=== PATIENT | male | born 1965 | race Two or more races ===

== ENCOUNTER 2025-07-06 17:32 | Inpatient (IN) | payer BC, SELFPAY ==
--- NOTE | 2025-07-06 17:41 | EDNOTE_ITS ---
Neuro Symptoms Deficit-RME/HPI General Chief Complaint: Altered Mental Status Stated Complaint: STROKE Time Seen by Provider: 07/06/25 17:41 Arrival date/time: 07/06/25 17:32 Limitations: no limitations RME / HPI RME / HPI Narrative: 60 year old male with history of hypertension presents to the ED BIBA from home for evaluation of right upper extremity numbness and weakness today. Patient reports waking up at 03:00 AM today to get ready for work when he noticed his entire right arm felt numb. Patient says he thought he had slept wrong and did not pay much attention to it. States he went to work and while working noticed some weakness to the right upper extremity. Evidently after completing his work day noticed the symptoms did not improve, prompting calling 911. Per medics, fire department reported obvious right facial droop with slurred speech. Though on their arrival, the facial droop had resolved. Medics adds as the patient was able to walk to they [facility] and noted to be mildly dragging the right leg. In the ED, patient also complains of a mild headache. Denies history of similar presentation. Related Data Previous Rx's ?Medication ?Instructions ?Recorded Amlodipine Besylate 1 tab PO QAM #30 tabs Allergies Allergy/AdvReac Type Severity Reaction Status Date / Time No Known Allergies Allergy Verified 05/26/18 01:39 Review of Systems Review of Systems Systems Reviewed: All systems reviewed, normal except as documented Past Medical History Past Medical History CARDIAC: Positive Cardiac Disorders and Hypertension; Negative Congestive Heart Failure RESPIRATORY: Negative Chronic Obstructive Pulmonary Disease (COPD) GENITOURINARY: Negative Renal Disease ENDOCRINE: Negative Diabetes Mellitus Type 1 or Diabetes Mellitus Type 2 Social History SMOKING STATUS: Current some day smoker ED Exam General Limitations: Present no limitations General appearance: Present alert and in no apparent distress Head Head exam: Present atraumatic, normocephalic and normal inspection Eye Eye exam: Present normal appearance, PERRL and EOMI ENT ENT exam: Present normal exam, normal oropharynx and mucous membranes moist Neck Neck exam: Present normal inspection, full ROM and trachea midline Chest Chest inspection: Present normal inspection and symmetric chest wall rise Respiratory Respiratory exam: Present normal lung sounds bilaterally Cardiovascular Cardiovascular exam: Present regular rate, normal rhythm and normal heart sounds Abdominal Exam Abdominal exam: Present soft and normal bowel sounds Extremities Exam Extremities exam: Present full ROM Back Exam Back exam: Present normal inspection and full ROM Neurological Exam Neurological exam: Present alert, oriented X3, CN II-XII intact and other (No facial droop noted, mild slurred speech, strength to the upper and lower extremities is normal, decreased sensation to the right upper extremity) Psychiatric Psychiatric exam: Present normal affect and normal mood Skin Skin exam: Present warm, dry, intact and normal color Course Quality Measures Suspected type of Stroke: Non Acute Tenecteplase given: Reason(s) TPA not given: Outside the time window not given stroke Orders Category Date Time Status Bedside Blood Glucose NOW Care 07/06/25 17:42 Active Mill Tender Warm Up NOW Care 07/06/25 17:42 Active Continuous Pulse Oximetry NOW Care 07/06/25 17:42 Completed Insert IV NOW Care 07/06/25 17:42 Active NIH Stroke Scale now Care 07/06/25 17:42 Active NPO NOW Care 07/06/25 17:42 Active Neuro Check Q15MIN Care 07/06/25 17:42 Active Nurse Swallow Screen x1 Care 07/06/25 17:42 Active Consult to Neurology / Tele-Neurology Routine Cons 07/06/25 17:[address] angio stroke protocol Stat Exams 07/06/25 17:[address] stroke protocol Stat Exams 07/06/25 17:42 Completed Alcohol, Blood Medical Stat Lab 07/06/25 18:37 Received B-Type Natriuretic Peptide Stat Lab 07/06/25 18:37 Completed CBC Stat Lab 07/06/25 18:37 Completed Comprehensive Metabolic Panel Stat Lab 07/06/25 18:37 Received Drug Screen,Urine Stat Lab 07/06/25 17:42 Ordered Magnesium Stat Lab 07/06/25 18:37 Received Partial Thromboplastin Time Stat Lab 07/06/25 18:37 Completed Prothrombin Time with INR Stat Lab 07/06/25 18:37 Completed Troponin I Stat Lab 07/06/25 18:37 Received Urinalysis Stat Lab 07/06/25 17:42 Ordered Urine Culture Stat Lab 07/06/25 17:42 Ordered Sodium Chloride 0.9% 1000 ml [Ns] 1,000 ml Med 07/06/25 17:45 Active IV 100 mls/hr Oxygen Delivery NOW RT 07/06/25 17:42 Active Vital Signs Vital signs: Vital Signs Pulse Rate 76 07/06/25 17:42 Neuro Symptoms / Deficit MDM Narrative MDM Narrative:: I, Marika Lara, am scribing for and in the presence of Dr. Jarquin. 1736: Patient evaluated in ED ambulance bay then sent to CT. 1901: I spoke with night hospitalist team for admission. Patient data External records reviewed:: [facility] previous records and EMS form Clinical information provided by:: patient and EMS Social determinants that could affect healthcare access:: none Patient has the following chronic illnesses:: HTN How is presenting disease/condition affected by chronic disease/condition?: exacerbated by Evaluation data The following diagnostics were reviewed and interpreted by me:: lab results and radiology exam(s) Lab and/or radiology exams considered but not ordered:: None Interpretation Summary: Ordering Physician: Stephen Jarquin MD Date of Service: 07/06/25 Procedure(s): CT stroke protocol Accession Number(s): [id number] cc: Stephen Jarquin MD; Tyrell Lopes MD; NO PRIMARY/FAMILY,PHYSICIAN~ Examination: CT brain head without contrast. 2-D sagittal coronal reconstructions Date and time of exam: July 06, 2025, 1750 hours INDICATIONS: Stroke alert, onset right-sided body weakness today CTDI: vol (mGy): 52.2 DLP: (mGycm): 1073 Technique: Multiple CT axial sections of the brain have been obtained, 5 mm slice thickness. Contrast has not been administered. 2-D sagittal, coronal reconstructions have been obtained Low dose protocols were performed. One or more of the following dose reduction techniques were used; automated exposure control, adjustment of the mA and/or KV according to patient size, use of iterative reconstruction technique. Findings: Mildly asymmetric left ventricular enlargement Intra-axial or extra-axial hemorrhage density is not seen. No mass effect or midline shift Basal cisterns are not remarkable. Fourth ventricle is midline. Cranial vault intact. Impression: Negative for acute hemorrhage, mass effect or midline shift Dictated By: Tyrell Lopes MD Signed By: <Electronically signed by Tyrell Lopes MD in OV> 07/06/251752 ======== Ordering Physician: Stephen Jarquin MD Date of Service: 07/06/25 Procedure(s): CT angio stroke protocol Accession Number(s): [id number] cc: Stephen Jarquin MD; Tyrell Lopes MD; NO PRIMARY/FAMILY,PHYSICIAN~ Examination: CTA carotids with intravenous contrast CTA brain, head with intravenous contrast. 2-D sagittal, coronal reconstructions. 3-D reconstructions. Exam date and time: July 06, 2025, 1754 hours INDICATIONS: Stroke alert, onset right-sided weakness today focal neurologic deficit CTDI: vol (mGy) 40.9 DLP: (mGycm) 490 Technique: Multiple CTA axial brain, head carotid images post intravenous contrast injection 75 cc, [id number]. 2-D sagittal, coronal reconstructions. 3-D reconstructions, 3-D post processing including vascular maximum intensity projection images. Low dose protocols were performed. One or more of the following dose reduction techniques were used; automated exposure control, adjustment of the mA and/or KV according to patient size, use of iterative reconstruction technique. Findings: No common carotid carotid bifurcation no significant internal carotid artery stenoses Dominant vertebral artery with no critical vertebral artery stenoses in the neck Intracranial vertebral arteries basilar artery and posterior cerebral branches fill with no large vessel occlusions Petrous juxtasellar portions internal carotid arteries fill and are intact M1 segments middle cerebral arteries fill Trifurcation artery filling bilaterally is mildly reduced which is a function of technique Anterior cerebral arteries demonstrate no large vessel occlusions IMPRESSION: No significant neck arterial stenoses No cerebral large vessel arterial occlusions or thrombus Dictated By: Tyrell Lopes MD Signed By: <Electronically signed by Tyrell Lopes MD in OV> 07/06/25 1560 Medications / Prescriptions Medications or Prescriptions considered but not ordered:: None Medication administrations:: Medication Administration History Sodium Chloride (Ns) 1,000 mls @ 100 mls/hr IV .Q10H FRANCY Stop: 08/05/25 17:44 Last Admin: 07/06/25 19:39 Dose: 100 mls/hr Documented By: AC See above Consultations Consultation(s) initiated? (list below): Yes Consultation #1 (Physician, Specialty, Details): I briefly discussed patients pmhx and HPI with teleneurologist Dr. Driss Alva. Consultation #2 (Physician, Specialty, Details): I spoke with teleneurologist Nia Alva. States she believes the patient may be having an acute lacunar stroke. States there is not LVO. Advised admission for stroke work up. Time: 18:44 Diagnosis Neuro Differential Diagnosis: subarachnoid hemorrhage, cerebrovascular accident and transient cerebral ischemia Most likely diagnosis given after review of the tests above:: Acute CVA Accelerated hypertension Ataxic gait Admission Indicated Admission indicated?: indicated Admission Request Was there a request for admission?: Yes Admission Attestation Admission request attestation: Discussed case with [] from Hospitalist service regarding admission. Discussed patients ED course, exam findings, labs, and radiology results. The Hospitalist [agrees,declines] to accept the patient for admission. Disposition Plan Disposition Plan: Admit Discharge Plan Plan Patient Disposition: Admit Acute Care w/in Hospital Prescriptions/Referrals Prescriptions/Med Rec: No Action Amlodipine Besylate 5 MG tablet 1 tab PO QAM Qty: 30 0RF Referrals: No Primary/Family,Physician [Primary Care Provider] - In 1 week Problem List Clinical Impression: Acute cerebrovascular accident (CVA), Accelerated hypertension, Ataxic gait Patient/Caregiver Discharge Instructions Print Language: Belarusian Stand Alone Forms: Emily Award Info., Patient Portal Info Letter
[2025-07-06 17:42] VITALS: PULSE 76
[2025-07-06 17:56] VITALS: BMI 31.6
[2025-07-06 18:08] VITALS: BP 180/120; PULSE 78; RESP 18; TEMP 36.6; O2SAT 96
--- NOTE | 2025-07-06 18:49 | PD.TNEURO ---
Tele Neuro Consultation Consultation Date 07/06/25 Most Recent Vital Signs Last Vital Signs Temp 97.9 F 07/06/25 18:08 Pulse 78 07/06/25 18:08 Resp 18 07/06/25 18:08 BP 180/120 H 07/06/25 18:08 Pulse Ox 96 07/06/25 18:08 O2 Del Method Room Air 07/06/25 18:08 Consultation Narrative [facility] Tele[facility]urology Consult Services Patient Name:???SYEDA MITCHELL Date of :???1965 Identification Number:??? Date of Service:???07/06/2025 17:34:05 Diagnosis:?I63.89 - Cerebrovascular accident (CVA) due to other mechanism ([facility]) Impression: ?60 yo male with history of HTN not on medications at home presenting to the ED with Right sided weakness/numbness/ataxia concerning for acute lacunar stroke. He is outside the time window for thrombolytics. CT Head negative for acute findings. CTA personally reviewed and negative for obvious LVO, will follow-up formal read. Plan to admit for MRI Brain wo and stroke workup. Start ASA 81 mg and Plavix 75 mg daily. Permissive HTN. Our recommendations are outlined below. Recommendations: ? Stroke/Telemetry Floor ? Neuro Checks (Q4) ? Bedside Swallow Eval ? DVT Prophylaxis ? IV Fluids, Normal Saline ? Head of Bed 30 Degrees ? Euglycemia and Avoid Hyperthermia (PRN Acetaminophen) ? Initiate dual antiplatelet therapy with Aspirin 81 mg daily and Clopidogrel 75 mg daily. ? Antihypertensives PRN if Blood pressure is greater than 220/120 or there is a concern for End organ damage/contraindications for permissive HTN. If blood pressure is greater than 220/120 give labetalol PO or IV or Vasotec IV with a goal of 15% reduction in BP during the first 24 hours. Sign Out: ? Discussed with Emergency Department Provider Advanced Imaging:Advanced imaging has been ordered. Results pending. Metrics: Last Known Well: 07/06/2025 01:00:00 Dispatch Time: 07/06/2025 17:34:05 Arrival Time: 07/06/2025 17:41:00 Initial Response Time: 07/06/2025 17:36:02Symptoms: Right sided weakness/numbness, incoordination. Initial patient interaction: 07/06/2025 17:40:15 NIHSS Assessment Completed: 07/06/2025 17:43:59Patient is not a candidate for Thrombolytic. Thrombolytic Medical Decision: 07/06/2025 17:44:00Patient was not deemed candidate for Thrombolytic because of following reasons: LKW outside 4.[address] Head: CT head unremarkable for acute infarction or hemorrhage per Radiology: No acute hemorrhage, mass effect or midline shift Primary Provider Notified of Diagnostic Impression and Management Plan on: 07/06/2025 18:43:47 History of Present Illness:Patient is a 60 year old Male. Patient was brought by EMS for symptoms of Right sided weakness/numbness, incoordination. Patient reports that he was last completely normal when he went to bed last night at ~0100. Woke up at ~0300 with RUE numbness after sleeping on his arm, but has been persistent throughout the day. Also having some slurred speech and difficulty walking with Right sided weakness. ? Past Medical History: ?Hypertension Medications: No Anticoagulant use? No Antiplatelet use Reviewed EMR for current medications Allergies:? Reviewed Social History: Smoking: No Family History: There is no family history of premature cerebrovascular disease pertinent to this consultation ROS : 14 Points Review of Systems was performed and was negative except mentioned in HPI. Past Surgical History: There Is No Surgical History Contributory To Today?s Visit ? Examination: BP(200/108),?Pulse(87),?Blood Glucose(96) 1A: Level of Consciousness - Alert; keenly responsive?+ 0 1B: Ask Month and Age - Both Questions Right?+ 0 1C: Blink Eyes & Squeeze Hands - Performs Both Tasks?+ 0 2: Test Horizontal Extraocular Movements - Normal?+ 0 3: Test Visual De La Garza - No Visual Loss?+ 0 4: Test Facial Palsy (Use Grimace if Obtunded) - Minor paralysis (flat nasolabial fold, smile asymmetry)?+ 1 5A: Test Left Arm Motor Drift - No Drift for 10 Seconds?+ 0 5B: Test Right Arm Motor Drift - Drift, but doesn't hit bed?+ 1 6A: Test Left Leg Motor Drift - No Drift for 5 Seconds?+ 0 6B: Test Right Leg Motor Drift - Drift, but doesn't hit bed?+ 1 7: Test Limb Ataxia (FNF/Heel-Coleman) - Ataxia in 2 Limbs?+ 2 8: Test Sensation - Normal; No sensory loss?+ 0 9: Test Language/Aphasia - Normal; No aphasia?+ 0 10: Test Dysarthria - Mild-Moderate Dysarthria: Slurring but can be understood?+ 1 11: Test Extinction/Inattention - No abnormality?+ 0 NIHSS Score:?6 Pre-Morbid Modified [place] Scale: 0 Points = No symptoms at all Spoke with :?Dr. Jarquin This consult was conducted in real time using interactive audio and video technology. Patient was informed of the technology being used for this visit and agreed to proceed. Patient located in hospital and provider located at home/office setting. Patient is being evaluated for possible acute neurologic impairment and high probability of imminent or life-threatening deterioration. I spent total of 30 minutes providing care to this patient, including time for face to face visit via telemedicine, review of medical records, imaging studies and discussion of findings with providers, the patient and/or family. Dr Driss Alva [facility] For Inpatient follow-up with [facility] physician please call [facility] at . As we are not an outpatient service for any post hospital discharge needs please contact the hospital for assistance. If you have any questions for the [facility] physicians or need to reconsult for clinical or diagnostic changes please contact us via [facility] at . Non-radiologist review of imaging performed to assist with emergent clinical decision-making. Remote physician workstations do not possess the same resolution, calibration, or diagnostic capabilities as hospital-based radiology reading stations, and formal radiologist read is necessary. Signature :Bipin Alva
[2025-07-06 19:12] LABS: Basophils # (Auto) 0.1 Thou/mm3 (0.0-0.2); Basophils % (Auto) 1 % (0-2.5); Eosinophils # (Auto) 0.1 Thou/mm3 (0.0-0.5); Eosinophils % (Auto) 2 % (0-10); Hematocrit 41.0 % (41.0-53.0); Hemoglobin 13.8 g/dL (13.5-16.0); Immature Granulocytes Auto 0.01 Thou/mm3 (0.00-0.00); Lymphocytes # (Auto) 1.5 Thou/mm3 (1.0-4.8); Lymphocytes % (Auto) 24 % (10-50); Mean Corpuscular HGB Conc 33.7 g/dl (31.0-37.0); Mean Corpuscular Hemoglobin 28.6 pg (25.0-35.0); Mean Corpuscular Volume 85 fL (80-100); Monocytes # (Auto) 0.8 Thou/mm3 (0.0-0.8); Monocytes % (Auto) 12 % (0-12); Neutrophils # (Auto) 3.9 Thou/mm3 (1.8-7.7); Neutrophils % (Auto) 61 % (37-80); Nucleated Red Blood Cell # 0.00 Thou/mm3 (0.00-0.00); Nucleated Red Blood Cell % 0 /100 WBC (0); Platelet Count 233 Thou/mm3 (140-440); RDW Standard Deviation 42.6 fL (35.1-43.9); Red Blood Count 4.82 Miln/mm3 (4.50-5.90); White Blood Count 6.4 Thou/mm3 (3.8-10.6)
[2025-07-06 19:23] VITALS: BP 188/123; PULSE 76; RESP 16; O2SAT 94
[2025-07-06 19:28] LABS: INR 1.0 (0.9-1.3); Partial Thromboplastin Time 26.4 Seconds (22.0-36.0); Prothrombin Time 10.8 Seconds (9.0-12.2)
[2025-07-06 19:31] LABS: B-Type Natriuretic Peptide 41 pg/mL (0-100)
[2025-07-06] MEDS: SODIUM CHLORIDE 0.9% 1000 ML 1,000 ML 100 ML IV (19:39)
[2025-07-06 19:53] LABS: Alanine Aminotransferase 21 U/L (10-49); Albumin, Serum 4.4 gm/dL (3.5-5.0); Albumin/Globulin Ratio 2.2 (1.2-2.2); Alcohol, Blood Medical < 3.0 mg/dL (0-10.0); Alkaline Phosphatase 55 U/L (46-116); Anion Gap 11 (7-16); Aspartate Amino Transferase 26 U/L (0-34); BUN/Creatinine Ratio 13 Ratio (12-20); Bilirubin,Total 0.5 mg/dL (0.3-1.2); Blood Urea Nitrogen 15 mg/dL (9-23); Calcium 8.8 mg/dL (8.3-10.6); Calcium (Corrected) 8.8 mg/dL (8.5-10.1); Carbon Dioxide 27.0 mMol/L (20.0-31.0); Chloride 104 mMol/L (98-107); Creatinine (Component) 1.2 mg/dL (0.6-1.3); Estimated Creatinine Clearance 67.0 mL/min (>60); Globulin 2.0 gm/dL (2.3-3.5); Glucose 94 mg/dL (74-106); Magnesium 2.1 mg/dL (1.6-2.6); Osmolality,Calculated 283 (275-295); Potassium 3.9 mMol/L (3.4-5.1); Sodium 142 mMol/L (136-145); Total Protein 6.4 gm/dL (5.7-8.2); Troponin I 0.031 ng/mL (0.0-0.045); eGFR > 60 See Note
--- NOTE | 2025-07-06 20:04 | XR_ITS ---
Examination: Ultrasound-guided paracentesis Abdominal sonogram limited Date and time of exam: Informed consent provided. A timeout was completed verifying correct patient, procedure, site, positioning, and special adequate movement if applicable. Technique: Multiple sonographic images of the abdomen have been obtained. Appropriate area for paracentesis was marked. Local anesthesia is obtained with 1% lidocaine. Yueh catheter is successfully introduced. Findings: Abdominal sonographic images demonstrate sufficient ascitic fluid for paracentesis. After placing the Yueh catheter, cc of fluid were successfully removed. During and after completion of the procedure the patient appear in satisfactory and stable condition with no complications observed. Estimated blood loss 0 cc Impression: Abdominal ascites Successful ultrasound-guided paracentesis as described above
--- NOTE | 2025-07-06 20:07 | ECHO_ITS ---
Transthoracic Echo Report Ht (in): 65 Wt (lb): 190 Exam Location: 262 Status: Emergency Nutritional Yeast Supervisor: Serena Grover Indications: Procedure Performed: BP: 159 / 105 HR: 91 MEASUREMENTS (Male / Female) Normal Values 2D ECHO LV Diastolic Diameter PLAX 5.3 cm 4.2 - 5.9 / 3.9 - 5.3 cm LV Systolic Diameter PLAX 4.6 cm IVS Diastolic Thickness 0.6 cm 0.6 - 1.0 / 0.6 - 0.9 cm LVPW Diastolic Thickness 1.2 cm 0.6 - 1.0 / 0.6 - 0.9 cm LV Relative Wall Thickness 0.3 LVOT Diameter 2.0 cm LV Ejection Fraction MOD BP 25.4 % >= 55 % LV Cardiac Index MOD BP 2434.9 cm?/min?m? LV Ejection Fraction MOD 4C 21.1 % LV Cardiac Index MOD 4C 2254.5 cm?/min?m? LV Ejection Fraction 4C AL 22.2 % LV Cardiac Index 4C AL 2473.5 cm?/min?m? LV Ejection Fraction MOD 2C 32.0 % LV Cardiac Index MOD 2C 2840.7 cm?/min?m? LV Ejection Fraction 2C AL 31.5 % LV Cardiac Index 2C AL 2846.0 cm?/min?m? LA Volume Index 51.1 cm?/m? 16 - 28 cm?/m? Ascending Aorta Diameter 3.0 cm M-MODE AV Cusp Separation MM 0.8 cm DOPPLER AV Peak Velocity 125.0 cm/s AV Peak Gradient 6.3 mmHg AV Mean Gradient 3.0 mmHg AV Velocity Time Integral 23.7 cm LVOT Peak Velocity 71.2 cm/s LVOT Peak Gradient 2.0 mmHg LVOT Velocity Time Integral 13.1 cm LVOT Cardiac Index 1855.7 cm?/min?m? AV Area Cont Eq vti 1.7 cm? AV Area Cont Eq pk 1.8 cm? MV Area PHT 7.3 cm? Mitral E Point Velocity 78.3 cm/s Mitral A Point Velocity 66.4 cm/s Mitral E to A Ratio 1.2 LV E' Lateral Velocity 4.3 cm/s Mitral E to LV E' Lateral Ratio 18.0 TR Peak Velocity 336.3 cm/s TR Peak Gradient 45.2 mmHg PV Peak Velocity 96.4 cm/s PV Peak Gradient 3.7 mmHg FINDINGS Left Ventricle Mild LVH. Global left ventricular systolic function is severely decreased. There is global left ventricular hypokinesis. Normal left ventricular diastolic filling pattern for age. The ejection fraction is visually estimated at 20-25 %. Right Ventricle The right ventricle is normal in size and systolic function. The estimated right ventricular systolic pressure, 52 mmHg with RAP 3. Severe HTN Left Atrium The left atrial cavity size is mildly increased. Right Atrium The right atrium is normal by two-dimensional imaging, color flow and Doppler imaging with no structural abnormalities, no thrombus formation present. Atrial Septum No [id number] shunt demonstrated by agitated saline injection. Aorta The aorta is normal by two-dimensional, color flow and Doppler interrogation. Mitral Valve The mitral valve is normal by two-dimensional, color flow and Doppler interrogation. [id number] mitral regurgitation. Mild thickening of the mitral valve leaflets. Aortic Valve Aortic valve sclerosis without stenosis Tricuspid Valve The tricuspid valve is normal by two-dimensional, color flow and Doppler interrogation.there is moderate tricuspid regurgitation. Pulmonic Valve The pulmonic valve is not well visualized. Mild pulmonic valve regurgitation. Vessels The pulmonary artery appears normal. The inferior vena cava pulmonary and hepatic veins appear normal. Pericardium The pericardium is normal by two-dimensional imaging. There is no significant pericardial effusion. CONCLUSIONS Indication: Stroke w/u Dilated cardiomyopathy severe global hypokinesis left ventricle ejection fraction 20 to 25%. No evidence of intracardiac thrombi detected. Negative bubble study no evidence of intracardiac shunts. Mitral valve thickening mild to moderate mitral regurgitation. Mild to moderate tricuspid regurgitation with mild pulmonary arterial hypertension. Possibly group 2 due to LV dysfunction. Normal right ventricular size and function. RVSP 52 mmHg Dilated left atrium Aortic valve sclerosis no stenosis. Mild pulmonic regurgitation. Negative bubble study Winifred Simmons (Electronically Signed) Final Date: 07 July 2025 15:02
[2025-07-06 20:37] LABS: Glucose Estimated Average 117 mg/dL (80-131); Hemoglobin A1C 5.7 % Hgb (4.8-6.0)
[2025-07-06] MEDS: HEPARIN SOD INJ 5000 UNIT/ML VIAL SC (21:06)
[2025-07-06 21:07] VITALS: BP 175/114; PULSE 73
[2025-07-06] MEDS: LABETALOL INJ 5 MG/ML VIAL 20 ML 10 MG IVP (21:07)
[2025-07-06 21:17] VITALS: BP 148/101; PULSE 69; RESP 18; O2SAT 95
--- NOTE | 2025-07-06 21:21 | PC.NURSE ---
REPORT GIVEN TO FLOOR NURSE WILL
--- NOTE | 2025-07-06 21:26 | PD.RESHP ---
Documentation for date of: 07/06/25 HPI History of Present Illness History of present illness: Mr. Oreilly is a 60 y/o male with PMH HTN who presented to the ED 07/06 with right sided weakness, numbness, ataxia, slurred speech, word finding difficulties, and right facial droop x 1 day. LKAW 01:00 07/06. NIHSS 6. Initial BP 180/120. Patient went to sleep at 01:00 on 07/06 and woke up at 03:00 with right upper and lower extremity weakness, numbness, and tingling sensation. Does not recall dropping objects with right hand. Patient went to work and noticed that the paresthesias and weakness persisted throughout the day. His coworkers also noticed patient's difficulty with walking. When symptoms did not improve throughout the day patient called EMS, and paramedics noticed right facial droop, slurred speech, and right foot drop. Patient denies previous similar episodes. Denies hx stroke, TIA, [place], CHF, arrhythmias, DVT, PE. He notes continued right sided tingling and weakness with some residual slurred speech. ED course: BP 180/120 --> 188/123, HR 60-70s. Stroke alert called. LKAW 1 AM 07/06, NIHSS 6. CT head negative for acute hemorrhage, mass effect, midline shift. Did show asymmetric left lateral ventricular enlargement. CTA negative for LVO or arterial stenoses. BG 94. Troponin negative. Given 1L NS in ED. PMHx: HTN Allergies: NKDA Home meds: none SgHx: none SHx: Denies smoking, EtOH, recreational drug use. Works in [employer]). FHx: none reported Review of Systems Review of Systems Narrative Review of Systems: 14 point ROS negative other than HPI Exam Vital Signs Temp Pulse Resp BP Pulse Ox O2 Del Method 97.9 F 69 18 148/101 H 95 Room Air 07/06/25 18:08 07/06/25 21:17 07/06/25 21:17 07/06/25 21:17 07/06/25 21:17 07/06/25 19:23 Narrative Exam General: No acute distress, well nourished Eye: PERRL, EOMI, normal conjunctiva, no scleral icterus HENT: Normocephalic, atraumatic, normal hearing, moist oral mucosa Neck: Supple, non-tender, no JVD, no lymphadenopathy Lungs: Clear to auscultation bilaterally, non-labored respirations, symmetric chest rise, no use of accessory muscles Heart: Normal S1 and S2, no S3 or S4 appreciated. Normal rate and regular rhythm, no murmurs, rubs gallops, or edema. Peripheral pulses intact bilaterally, capillary refill brisk distally Abdomen: Soft, non-tender, non-distended, normal bowel sounds. No guarding or rebound tenderness. Musculoskeletal: Normal range of motion and strength, no tenderness or swelling Skin: Skin is warm, dry, no rashes or lesions. Psychiatric: Cooperative, appropriate mood and affect Neurologic: Mental status: Orientation: Oriented to person, place, time, and situation Communication: Patient is cooperative and can follow simple instructions Language: Mildly slurred speech, some word finding difficulty Cranial nerves: CN II: Visual mullen intact CN III: Pupils equal, round, and reactive to light CN III, IV, : No gaze deviation, no nystagmus Horizontal pursuit: intact Vertical pursuit: intact Ptosis: none CN V: Facial sensation to light touch intact bilaterally at the forehead, cheeks, and jaw line CN VII: Right lower facial droop CN VIII: Able to hear and respond to conversation at normal volume, intact to finger rub CN IX, X: Palate elevation symmetric, uvula midline CN XI: Head turn and shoulder shrug strong, symmetric bilaterally CN XII: Normal tongue protrusion without deviation, no fasciculations Motor: Normal bulk and tone No atrophy No abnormal movements or fasciculations Muscle strength: Shoulder abduction: R 5/5 L 5/5 Elbow flexion: R 5/5 L 5/5 Elbow extension: R 5/5 L 5/5 Hip flexion: R 5/5 L 5/5 Hip extension: R 5/5 L 5/5 Knee flexion: R 5/5 L 5/5 Knee extension: R 5/5 L 5/5 Sensory: RUE: Light touch intact LUE: Light touch intact RLE: Light touch intact LLE: Light touch intact Cerebellum: RUE: No dysmetria (finger to nose), no dysdiadochokinesia (rapid alternating movements) LUE: No dysmetria (finger to nose), no dysdiadochokinesia (rapid alternating movements) RLE: No dysmetria (heel to pineda) LLE: No dysmetria (heel to pineda) Romberg: negative Gait: Able to take several steps but felt off balance Results: Labs 07/07/25 05:49 07/07/25 05:49 Labs: Short CBC 07/06/25 Range/Units 18:37 WBC 6.4 (3.8-10.6) Thou/mm3 Hgb 13.8 (13.5-16.0) g/dL Hct 41.0 (41.0-53.0) % Plt Count 233 (140-440) Thou/mm3 BMP 07/06/25 18:37 Sodium 142 Potassium 3.9 Chloride 104 Carbon Dioxide 27.0 BUN 15 Creatinine 1.2 Glucose 94 Calcium 8.8 Cardiac Enzymes 07/06/25 Range/Units 18:37 Troponin I 0.031 (0.0-0.045) ng/mL Liver Function 07/06/25 Range/Units 18:37 Total Bilirubin 0.5 (0.3-1.2) mg/dL AST 26 (0-34) U/L ALT 21 (10-49) U/L Alkaline Phosphatase 55 (46-116) U/L Albumin 4.4 (3.5-5.0) gm/dL Quality Measures Quality Measures stroke Suspected type of Stroke: Acute Ischemic Tenecteplase given: Reason(s) Tenecteplase not given: Outside the time window not given Rehab services: PT evaluation ordered and Speech Language Pathology eval ordered VTE Prophylaxis: pharmaceutical Antithrombotic by day 2:: not indicated (describe) Statin ordered: <75 y/o high intensity dose Anticoagulation ordered for A-fib or flutter (current or hx): not indicated Medications Home Medications and Allergies Home Medications ?Medication ?Instructions ?Recorded ?Confirmed ?Type No Known Home Medications 07/06/25 07/06/25 History Allergies Allergy/AdvReac Type Severity Reaction Status Date / Time No Known Allergies Allergy Verified 05/26/18 01:39 Visit Medications Acetaminophen (Acetaminophen 325 Mg Tablet) 650 mg PO Q6H PRN PRN Reason: Fever >100.3 Stop: 08/05/25 20:03 Acetaminophen (Acetaminophen 325 Mg Tablet) 650 mg PO Q6H PRN PRN Reason: PAIN SCALE 1-3 (mild Stop: 08/05/25 20:03 Aspirin (Aspirin Ec 81 Mg Tabec) 81 mg PO QDAY FRANCY Stop: 08/06/25 08:59 Clopidogrel Bisulfate (Clopidogrel Bisulfate 75 Mg Tablet) 75 mg PO QDAY REPLACED BY [facility] Stop: 08/06/25 08:59 Heparin Sodium (Porcine) (Heparin Sod Inj 5000 Unit/Ml Vial) 5,000 unit SC Q8HR FRANCY Stop: 07/20/25 21:59 Last Admin: 07/06/25 21:06 Dose: 5,000 unit Sodium Chloride (Ns) 1,000 mls @ 100 mls/hr IV .Q10H REPLACED BY [facility] Stop: 08/05/25 17:44 Last Admin: 07/06/25 19:39 Dose: 100 mls/hr Labetalol HCl (Labetalol Inj 5 Mg/Ml Vial 20 Ml) 10 mg IVP Q6H PRN PRN Reason: SBP>220, DBP>120 Stop: 08/05/25 20:27 Last Admin: 07/06/25 21:07 Dose: 10 mg Ondansetron HCl (Ondansetron Inj 2 Mg/Ml Inj 2 Ml) 4 mg IVP Q6H PRN; Protocol PRN Reason: NAUSEA OR VOMITING Stop: 08/05/25 20:03 Discontinued Medications Aspirin (Aspirin 325 Mg Tablet) 325 mg PO X1 ONE Stop: 07/06/25 20:05 Last Admin: 07/06/25 21:11 Dose: Not Given Labetalol HCl (Labetalol Inj 5 Mg/Ml Vial 20 Ml) 10 mg IVP X1 ONE Stop: 07/06/25 20:20 Last Admin: 07/06/25 20:25 Dose: Not Given Labetalol HCl (Labetalol Inj 5 Mg/Ml Vial 20 Ml) 10 mg IVP Q6H PRN PRN Reason: SBP>220, DBP>110 Stop: 08/05/25 20:27 Assessment & Plan Plan Mr. Oreilly is a 60 y/o male with PMH HTN who presented to the ED 07/06 with right sided weakness, numbness, ataxia, slurred speech, word finding difficulties, and right facial droop x 1 day. Admitted for stroke w/u. #CVA #Right sided weakness, paresthesias #Dysarthria #Mild expressive aphasia Hx stroke/TIA: none Hx afib: none Smoking hx: none Initial symptoms: right sided weakness, paresthesias, dysarthria, expressive aphasia, dizziness, right foot drop. Sx have not resolved LKAW: 01:00 on 07/06 Initial NIHSS: 6 Inital BP: 180/120 EKG: pending Initial glucose: 94 UDS: pending EtOH: negative A1C: pending Lipids: pending TSH: pending Troponin: negative CT head w/o: negative for acute hemorrhage, mass effect, midline shift. Did show asymmetric left lateral ventricular enlargement. CTA head/neck w/: CTA negative for LVO or arterial stenoses MRI/MRA w/ and w/o: pending TTE: pending Outside of window for tPA, not candidate for thrombectomy DDX: Large vessel atherosclerosis (thrombus), cardioembolic, small vessel (lacunar) disease, hypercoagulable state, arterial dissection, vasculitis, substance use Plan: - ASA 81 mg PO daily, Plavix 75 mg PO dialy - Atorvastatin 80 mg PO daily - Pending EKG, UDS, A1C, lipids, TSH, MRI, TTE - Neuro Checks q4h - Permissive HTN. Antihypertensives PRN if Blood pressure is greater than 220/120 or there is a concern for End organ damage/contraindications for permissive HTN. If blood pressure is greater than 220/120 give labetalol PO or IV or Vasotec IV with a goal of 15% reduction in BP during the first 24 hours. - Aspiration Precautions, Head of bed 30 degrees - Euglycemia and avoid Hyperthermia - Consulted neuro, appreciate recs - Refer PT, speech eval #Hypertension urgency No home meds, does not take BP at home Plan: - See above for permissive HTN parameters #Methamphetamine use Utox positive for Meth [place] patient regarding drug use and need to stop Social referral Checklist Dispo: Admit to tele for q4h neuro checks Diet: regular Bowel Reg: doc/senna PRN VTE ppx: heparin subQ GI ppx: n/a Pain mgmt: Tylenol PRN Code status: limited - ok CPR, DNI Plan discussed with Dr. Deleon and Dr. Javy Sexton MD PGY1 Attending Provider Attestation/Addendum After examination of the patient and review of the clinical data I feel that this patient needs admission to the hospital for further treatment/evaluation. Plan of care discussed with patient and is in agreement. I Luz Maria Palafox MD, attest that I was physically present for pres[place] portions of evaluation, and examined patient, labs and imagings and plan of care were discussed with IM residents team, and I agree with the findings and plans documented above.
[2025-07-06 21:58] VITALS: PULSE 71; RESP 19; O2SAT 98
[2025-07-06 23:55] LABS: Collection Type, Urine Catheter; Squamous Epithelial Cell,Urine 0 /hpf (0-5)
[2025-07-07] VITALS (8 sets, daily range): BP systolic 151–174; BP diastolic 102–117; PULSE 62–108; RESP 18–23; TEMP 36.1–36.8; O2SAT 94–97
--- NOTE | 2025-07-07 | XR_ITS ---
Examination: MRI brain without intravenous contrast. MRI brain with intravenous contrast MRA neck and brain with intravenous contrast MRA brain without intravenous contrast Date and time of exam: July 07, 2025, 1618 hours INDICATIONS: Stroke alert yesterday, onset right-sided body numbness weakness ataxia slurred speech Technique: Multiple axial and sagittal images of the brain obtained. Siemens high-resolution 1.5 Farzaneh short bore scanners utilized. Sagittal sections, T1-weighted, TR 500, TE 14, are performed. Axial sections proton-density and T2-weighted have been obtained. Inversion recovery axial images, TR 9, 260, TE 111, TI 2500. Diffusion weighted images, axial sections, TR 4800, TE 128, B value 1000 Axial sections, ADC map, TR 4800, TE 128 Intravenous administration 19 cc gadolinium followed by axial sagittal images MRA images without contrast including 3D reconstruction MRA images neck and brain post intravenous administration 19 cc gadolinium including 3D reconstructions 3D postprocessing Findings: Enlargement of the sella turcica is not present. The optic chiasm and infundibular are not remarkable. Prepontine and interpeduncular cisterns are not enlarged. There is no localized enlargement of the medulla or promise. Fourth ventricle and cerebellar tonsils appear normal in position. No subacute area of hemorrhage density is seen. Mass in the cerebellopontine angle region is not evident. Globes symmetrical. Orbital musculature including medial lateral rectus muscles do not exhibit abnormality. Diffusion-weighted images demonstrate 9 mm focus restricted diffusion left brainstem pontine level with signal deficit on the ADC map. Increased white matter signal prominent MRA brain images demonstrate no cerebral large vessel arterial occlusions MRA images postcontrast demonstrate no significant carotid stenoses Atretic right vertebral artery Mass effect upon the ventricular system is not identified. Impression: 9 mm acute infarct left brainstem pontine level Prominent microvascular white matter change No significant carotid stenoses Atretic right vertebral artery, recommend carotid vertebral Doppler sonography to exclude retrograde flow in the right vertebral artery No cerebral large vessel arterial occlusions
[2025-07-07 00:08] LABS: Amphetamine/Methamp Scrn,U Positive (Negative); Barbiturate Screen,Urine Negative (Negative); Benzodiazepines Screen,Urine Negative (Negative); Benzoylecgonine Screen, Ur Negative (Negative); Fentanyl Screen,Urine Negative (Negative); Opiate Screen,Urine Negative (Negative); THC Screen,Urine Negative (Negative)
[2025-07-07 00:10] LABS: Bilirubin,Urine Negative (Negative); Blood,Urine Negative (Negative); Clarity,Urine Clear (Clear/Hazy); Color,Urine Lt-Yellow (Lt Yel-Yel); Glucose, Urine Negative (Negative); Ketones,Urine Negative (Negative); Leukocyte Esterase,Urine Negative (Negative); Nitrite,Urine Negative (Negative); PH,Urine 6.5 (5.0-7.0); Protein,Urine Negative (Neg - Trace); RBC,Urine 1 /hpf (0-3); Urobilinogen,Urine Negative mg/dL (0.0-1.0); WBC,Urine < 1 /hpf (0-5)
[2025-07-07 00:17] LABS: Specific Gravity,Urine 1.010 (1.001-1.035)
--- NOTE | 2025-07-07 01:35 | EKG_ITS ---
[facility] Test Date: 2025-07-07 Pat Name: SYEDA MITCHELL [facility] Gender: Male [employer] A[employer]: ER : 1965 Requested By: Maddy Sexton Order Number: [id number] Reading MD: Maddy Sexton Measurements Intervals [place] Rate: 70 P: 57 [place]: 157 QRS: -50 QRSD: 123 T: 202 QT: 459 QTc: 495 Interpretive Statements SINUS RHYTHM POSSIBLE LEFT ATRIAL ENLARGEMENT LEFT ANTERIOR FASCICULAR BLOCK LEFT VENTRICULAR HYPERTROPHY AND ST-T CHANGE POSSIBLE SEPTAL MYOCARDIAL INFARCTION , POSSIBLY ACUTE ACUTE RI No previous ECG available for comparison /[id number]/[email or web address]/[id number].pdf
[2025-07-07] MEDS: SODIUM CHLORIDE 0.9% 1000 ML 1,000 ML 100 ML IV ×2 (02:46→14:19)
[2025-07-07] MEDS: HEPARIN SOD INJ 5000 UNIT/ML VIAL SC ×3 (05:26→21:12)
[2025-07-07 06:18] LABS: Basophils # (Auto) 0.1 Thou/mm3 (0.0-0.2); Basophils % (Auto) 1 % (0-2.5); Eosinophils # (Auto) 0.1 Thou/mm3 (0.0-0.5); Eosinophils % (Auto) 2 % (0-10); Hematocrit 39.5 % (41.0-53.0); Hemoglobin 13.3 g/dL (13.5-16.0); Immature Granulocytes Auto 0.01 Thou/mm3 (0.00-0.00); Lymphocytes # (Auto) 1.5 Thou/mm3 (1.0-4.8); Lymphocytes % (Auto) 29 % (10-50); Mean Corpuscular HGB Conc 33.7 g/dl (31.0-37.0); Mean Corpuscular Hemoglobin 28.8 pg (25.0-35.0); Mean Corpuscular Volume 86 fL (80-100); Monocytes # (Auto) 0.5 Thou/mm3 (0.0-0.8); Monocytes % (Auto) 10 % (0-12); Neutrophils # (Auto) 2.9 Thou/mm3 (1.8-7.7); Neutrophils % (Auto) 58 % (37-80); Nucleated Red Blood Cell # 0.00 Thou/mm3 (0.00-0.00); Nucleated Red Blood Cell % 0 /100 WBC (0); Platelet Count 201 Thou/mm3 (140-440); RDW Standard Deviation 42.9 fL (35.1-43.9); Red Blood Count 4.62 Miln/mm3 (4.50-5.90); White Blood Count 5.1 Thou/mm3 (3.8-10.6)
[2025-07-07 06:42] LABS: Anion Gap 11 (7-16); BUN/Creatinine Ratio 15 Ratio (12-20); Blood Urea Nitrogen 15 mg/dL (9-23); Calcium 8.3 mg/dL (8.3-10.6); Carbon Dioxide 24.3 mMol/L (20.0-31.0); Cardiac Risk Estimate 2.9 RATIO (4.0-6.7); Chloride 107 mMol/L (98-107); Cholesterol 162 mg/dL (132-200); Creatinine (Component) 1.0 mg/dL (0.6-1.3); Estimated Creatinine Clearance 84.0 mL/min (>60); Glucose 100 mg/dL (74-106); HDL Cholesterol 56 mg/dL (40-60); LDL Cholesterol,Calculated 91 mg/dL (0-130); Magnesium 1.9 mg/dL (1.6-2.6); Osmolality,Calculated 283 (275-295); Phosphorous 3.9 mg/dL (2.4-5.1); Potassium 3.6 mMol/L (3.4-5.1); Sodium 142 mMol/L (136-145); Thyroid Stimulating Hormone 2.21 uIU/mL (0.55-4.78); Triglycerides 73 mg/dL (30-150); eGFR > 60 See Note
[2025-07-07] MEDS: CLOPIDOGREL BISULFATE 75 MG TABLET PO (08:17)
[2025-07-07] MEDS: ASPIRIN EC 81 MG TABEC PO (08:17)
--- NOTE | 2025-07-07 09:04 | PC.SS ---
Follow up note: MRI and PT pending.
--- NOTE | 2025-07-07 10:08 | PC.PT ---
PT eval only. Patient was xI with bed mobility, transfers, and ambulation with no AD. Patient is safe to ambulate to the bathroom with no AD and no staff. RN made aware.
[2025-07-07] MEDS: ONDANSETRON INJ 2 MG/ML INJ 2 ML 4 MG IVP (11:29)
--- NOTE | 2025-07-07 12:36 | PC.SS ---
SS met with patient regarding his d/c plan. Pt is alert/oriented. Pt was admitted for Stroke W/U. Pt confirmed demographic information is correct on facesheet. Patient's phone# is [phone]. Pt resides with . Pt ambulates independently without assistance or DME. Pt is ok with all ADLs. Pt is employed multimedia designer. Patient?s pharmacy of choice is [facility] on [address] Pt named his , Aditi Oreilly medical decision maker if he is unable. Patient?s choice is to return home upon d/c. Pt does not have an advance directive, SS offered, and pt was receptive. Pt states he is not diabetic and is not on dialysis. will provided transportation home. Pt followed up with PCP couple months ago. D/C plan: Return home Next of Kin: Aditi Oreilly, , phone# [phone] PCP: [facility] Address: Correct on facesheet
--- NOTE | 2025-07-07 12:54 | PC.SS ---
Stroke assessment completed
--- NOTE | 2025-07-07 13:21 | ESPR_ITS ---
<Statement entered by Franissco Rivas MD - 07/10/25 15:51> I reviewed above note and agree with findings and plans. I have also personally examined the patient with medicine team and went over assessment and plan with medical team including graduate intern and resident physician. 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 No evidence of intracardiac thrombi detected. Negative bubble study no evidence of intracardiac shunts. Mitral valve thickening mild to moderate mitral regurgitation. Mild to moderate tricuspid regurgitation with mild pulmonary arterial hypertension. Possibly group 2 due to LV dysfunction. Normal right ventricular size and function. RVSP 52 mmHg, Dilated left atrium, Aortic valve sclerosis no stenosis. Mild pulmonic regurgitation. Negative bubble study. Currently, neurology recommendations pending for patient's infarct on left brainstem pontine level. Patient is on aspirin 81 mg p.o. daily, atorvastatin 80 mg p.o. at bedtime, Plavix 75 mg p.o. daily, dapagliflozin 10 mg p.o. every morning,, lisinopril 5 mg p.o. daily, metoprolol 25 mg p.o. daily. labetalol 10 mg IV every 6 hours as needed Residual right lower facial droop noted, with sparing of the upper face. Otherwise, patient's symptom has resolved. Exam Vital Signs Temp Pulse Resp BP Pulse Ox O2 Del Method 98.3 F 62 20 174/117 H 96 Room Air 07/07/25 12:00 07/07/25 12:00 07/07/25 12:00 07/07/25 12:00 07/07/25 12:00 07/07/25 12:00 Narrative Exam General: No acute distress, well nourished, AAO x3 Eye: PERRL, EOMI, normal conjunctiva, no scleral icterus HENT: Normocephalic, atraumatic, hearing intact to conversation at normal volume, moist oral mucosa Neck: Supple, non-tender, no JVD, no lymphadenopathy Lungs: Non-labored respirations, symmetric chest rise, Clear to auscultate bilaterally, No wheezing, rhonchi, crackles Heart: Peripheral pulses intact bilaterally, Regular Rate and Rhythm. Abdomen: Soft, non-tender, non-distended, no palpable masses Musculoskeletal: Normal range of motion and strength, No cyanosis or edema, No visible joint swelling Skin: Skin is warm, dry, no rashes or lesions. Psychiatric: Cooperative, appropriate mood and affect, Awake and alert, not agitated Neuro: Strength 5/5 throughout. Sensations intact to light touch, Residual right lower facial droop noted, with sparing of the upper face. Objective Labs 07/07/25 05:49 07/07/25 05:49 Labs: Laboratory Results - last 24 hr 07/06/25 07/06/25 07/07/25 18:37 23:35 05:49 WBC 6.4 5.1 RBC 4.82 4.62 Hgb 13.8 13.3 L Hct 41.0 39.5 L MCV 85 86 MCH 28.6 28.8 MCHC 33.7 33.7 RDW Std Deviation 42.6 42.9 Plt Count 233 201 D Neut % (Auto) 61 58 Lymph % (Auto) 24 29 [place] % (Auto) 12 10 Eos % (Auto) 2 2 Baso % (Auto) 1 1 Neut # (Auto) 3.9 2.9 Lymph # (Auto) 1.5 1.5 [place] # (Auto) 0.8 0.5 Eos # (Auto) 0.1 0.1 Baso # (Auto) 0.1 0.1 Immature Gran # (Auto) 0.01 H 0.01 H Absolute Nucleated RBC 0.00 0.00 Immature Gran % 0 0 Nucleated RBC % 0 0 PT 10.8 INR 1.0 APTT 26.4 Sodium 142 142 Potassium 3.9 3.6 Chloride 104 107 Carbon Dioxide 27.0 24.3 Anion Gap 11 11 BUN 15 15 Creatinine 1.2 1.0 Estim Creat Clear Calc 67.0 84.0 eGFR > 60 > 60 BUN/Creatinine Ratio 13 15 Glucose [address] Glu mg/dL 117 Hemoglobin A1c 5.7 Calculated Osmolality 283 283 Calcium 8.8 8.3 Corrected Calcium 8.8 Phosphorus 3.9 Magnesium 2.1 1.9 Total Bilirubin 0.5 AST 26 ALT 21 Alkaline Phosphatase 55 Troponin I 0.031 B-Natriuretic Peptide 41 Total Protein 6.4 Albumin 4.4 Globulin 2.0 L Albumin/Globulin Ratio 2.2 Triglycerides 73 Cholesterol 162 LDL Cholesterol, Calc 91 HDL Cholesterol 56 Cholesterol/HDL Ratio 2.9 L TSH 2.21 Ur Collection Type Catheter Urine Color Lt-Yellow Urine Clarity Clear Urine pH 6.5 Ur Specific [place] 1.010 Urine Protein Negative Urine Glucose (UA) Negative Urine Ketones Negative Urine Blood Negative Urine Nitrite Negative Urine Bilirubin Negative Urine Urobilinogen (Auto) Negative Ur Leukocyte Esterase Negative Urine RBC 1 Urine WBC < 1 Ur Squamous Epith Cells 0 Urine Bacteria None Urine Opiates Screen Negative Urine Fentanyl Screen Negative Ur Barbiturates Screen Negative U Amphetamin/Meth Scrn Positive A U Benzodiazepines Scrn Negative U Cocaine Metab Screen Negative U Marijuana (THC) Screen Negative Ethyl Alcohol < 3.0 Quality Measures Quality Measures stroke Suspected type of Stroke: Non Acute Last known well (date): 07/06/25 Last known well (time): 03:00 Tenecteplase given: Reason(s) Tenecteplase not given: Outside the time window not given Rehab services: PT evaluation ordered VTE Prophylaxis: pharmaceutical Antithrombotic by day 2:: ordered Statin ordered: <75 y/o high intensity dose Anticoagulation ordered for A-fib or flutter (current or hx): not indicated Assessment & Plan Assessment Current Active Medications: Generic Name Dose Route Start Last Admin Trade Name Freq PRN Reason Stop Dose Admin Acetaminophen 650 mg 07/06/25 20:04 Acetaminophen 325 Mg Tablet PO 08/05/25 20:03 Q6H PRN Fever >100.3 Acetaminophen 650 mg 07/06/25 20:04 Acetaminophen 325 Mg Tablet PO 08/05/25 20:03 Q6H PRN PAIN SCALE 1-3 (mild Aspirin 81 mg 07/07/25 09:00 07/07/25 08:17 Aspirin Ec 81 Mg Tabec PO 08/06/25 08:59 81 mg QDAY FRANCY Administration Atorvastatin Calcium 80 mg 07/07/25 21:00 Atorvastatin Calcium 20 Mg Tablet PO 08/06/25 20:59 HS FRANCY Clopidogrel Bisulfate 75 mg 07/07/25 09:00 07/07/25 08:17 Clopidogrel Bisulfate 75 Mg Tablet PO 08/06/25 08:59 75 mg QDAY FRANCY Administration Heparin Sodium (Porcine) 5,000 unit 07/06/25 22:00 07/07/25 05:26 Heparin Sod Inj 5000 Unit/Ml Vial SC 07/20/25 21:59 5,000 unit Q8HR FRANCY Administration Sodium Chloride 1,000 mls @ 100 mls/hr 07/06/25 17:45 07/07/25 02:46 Ns IV 08/05/25 17:44 100 mls/hr .Q10H FRANCY Administration Labetalol HCl 10 mg 07/06/25 20:34 07/06/25 21:07 Labetalol Inj 5 Mg/Ml Vial 20 Ml IVP 08/05/25 20:27 10 mg Q6H PRN Administration SBP>220, DBP>120 Lisinopril 5 mg 07/07/25 09:00 07/07/25 08:58 Lisinopril 2.5 Mg Tablet PO 08/06/25 08:59 5 mg QDAY FRANCY Administration Ondansetron HCl 4 mg 07/06/25 20:04 07/07/25 11:29 Ondansetron Inj 2 Mg/Ml Inj 2 Ml IVP 08/05/25 20:03 4 mg Q6H PRN Administration NAUSEA OR VOMITING Protocol Sennosides 1 tab 07/06/25 21:49 Senna/Docusate Sod 1 Tab Tablet PO 08/05/25 21:48 QDAY PRN CONSTIPATION Protocol Plan Mr. Oreilly is a 60 y/o male with PMH HTN who presented to the ED 07/06 with right sided weakness, numbness, ataxia, slurred speech, word finding difficulties, and right facial droop x 1 day. Admitted for stroke w/u. #Right sided weakness, paresthesias #Dysarthria #Mild expressive aphasia Hx stroke/TIA: none Hx afib: none Smoking hx: none Initial symptoms: right sided weakness, paresthesias, dysarthria, expressive aphasia, dizziness, right foot drop. Sx have not resolved LKAW: 01:00 on 07/06 Initial NIHSS: 6 Inital BP: 180/120 EKG: pending Initial glucose: 94 UDS: pending EtOH: negative A1C: pending Lipids: pending TSH: pending Troponin: negative CT head w/o: negative for acute hemorrhage, mass effect, midline shift. Did show asymmetric left lateral ventricular enlargement. 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 No evidence of intracardiac thrombi detected. Negative bubble study no evidence of intracardiac shunts. Mitral valve thickening mild to moderate mitral regurgitation. Mild to moderate tricuspid regurgitation with mild pulmonary arterial hypertension. Possibly group 2 due to LV dysfunction. Normal right ventricular size and function. RVSP 52 mmHg, Dilated left atrium, Aortic valve sclerosis no stenosis. Mild pulmonic regurgitation. Negative bubble study. Plan: - ASA 81 mg PO daily, Plavix 75 mg PO dialy - Atorvastatin 80 mg PO daily - Pending EKG, UDS, A1C, lipids, TSH, - Neuro Checks q4h - Permissive HTN. Antihypertensives PRN if Blood pressure is greater than 220/120 or there is a concern for End organ damage/contraindications for permissive HTN. If blood pressure is greater than 220/120 give labetalol PO or IV or Vasotec IV with a goal of 15% reduction in BP during the first 24 hours. - Aspiration Precautions, Head of bed 30 degrees - Euglycemia and avoid Hyperthermia - Consulted neuro, appreciate recs - Refer PT, speech eval #HFrEF 20-25% #PAH, RVSP 52mmHg -ECHO w/ bubble (07/07/2025): Dilated cardiomyopathy severe global hypokinesis left ventricle ejection fraction 20 to 25%. No evidence of intracardiac thrombi detected. Negative bubble study no evidence of intracardiac shunts. Mitral valve thickening mild to moderate mitral regurgitation. Mild to moderate tricuspid regurgitation with mild pulmonary arterial hypertension. Possibly group 2 due to LV dysfunction. Normal right ventricular size and function. RVSP 52 mmHg, Dilated left atrium, Aortic valve sclerosis no stenosis. Mild pulmonic regurgitation. Negative bubble study. Plan: -F/u outpatient #Hypertension urgency No home meds, does not take BP at home Plan: - See above for permissive HTN parameters #Methamphetamine use Utox positive for Meth [place] patient regarding drug use and need to stop Social referral Checklist Dispo: Admit to tele for q4h neuro checks Diet: regular Bowel Reg: doc/senna PRN VTE ppx: heparin subQ GI ppx: n/a Pain mgmt: Tylenol PRN Code status: limited - ok CPR, DNI Assessment and plan discussed with my attending physician Dr. Evelyn Gallegos (PGY-1) - Internal medicine resident
--- NOTE | 2025-07-07 15:13 | ESPR_ITS ---
Documentation for date of: 07/07/25 Subjective Subjective Interval history: Patient examined at bedside. BP elevated 174/117, labs He has no major complaints, all symptoms have resolved. No new deficits noted on exam. Bubble study negative on echo. Did show dilated cardiomyopathy severe global hypokinesis left ventricle ejection fraction 20 to 25%. MRI results are pending. Continue aspirin, plavix, and atorvastatin. Exam Vital Signs Temp Pulse Resp BP Pulse Ox O2 Del Method 98.3 F 62 20 174/117 H 96 Room Air 07/07/25 12:00 07/07/25 12:00 07/07/25 12:00 07/07/25 12:00 07/07/25 12:00 07/07/25 12:00 Narrative Exam General: Alert and oriented x3. Male, No acute distress, cooperative HEENT: NCAT, No JVD noted. Mucosa moist. Pupils are equal and reactive to light bilaterally Cardiovascular: Normal S1 and S2. Regular rate and rhythm. Respiratory: Lungs are clear to auscultation bilaterally. No wheezing or crackles heard. Abdomen: Soft, nontender, not distended, normal bowel sounds. Skin: Warm to touch, dry, no rashes noted Musculoskeletal: No gross injuries. Able to move all 4 extremities. No pitting edema Neuro: Alert, awake and oriented x3. Cranial nerves: II through XII grossly intact. Speech and language: Normal with no dysarthria or dysphasia. Motor system: Tone and bulk: Normal: Strength: 5 out of 5 in all 4 extremities; No pronator drift noted. Deep tendon reflexes: 2+ bilaterally symmetrical. Plantar reflex: Downgoing bilaterally. Sensory system: Intact to all modalities of sensation bilaterally. Coordination: Intact to [id number] and [id number] test bilaterally. No ataxia, no dysmetria, or dysdiadochokinesia noted. No intention tremors noted. Gait: Not tested. No signs of meningeal irritation noted. Psych: Normal affect and mood Objective Labs 07/07/25 05:49 07/07/25 05:49 Labs: Laboratory Results - last 24 hr 07/06/25 07/06/25 07/07/25 18:37 23:35 05:49 WBC 6.4 5.1 RBC 4.82 4.62 Hgb 13.8 13.3 L Hct 41.0 39.5 L MCV 85 86 MCH 28.6 28.8 MCHC 33.7 33.7 RDW Std Deviation 42.6 42.9 Plt Count 233 201 D Neut % (Auto) 61 58 Lymph % (Auto) 24 29 [place] % (Auto) 12 10 Eos % (Auto) 2 2 Baso % (Auto) 1 1 Neut # (Auto) 3.9 2.9 Lymph # (Auto) 1.5 1.5 [place] # (Auto) 0.8 0.5 Eos # (Auto) 0.1 0.1 Baso # (Auto) 0.1 0.1 Immature Gran # (Auto) 0.01 H 0.01 H Absolute Nucleated RBC 0.00 0.00 Immature Gran % 0 0 Nucleated RBC % 0 0 PT 10.8 INR 1.0 APTT 26.4 Sodium 142 142 Potassium 3.9 3.6 Chloride 104 107 Carbon Dioxide 27.0 24.3 Anion Gap 11 11 BUN 15 15 Creatinine 1.2 1.0 Estim Creat Clear Calc 67.0 84.0 eGFR > 60 > 60 BUN/Creatinine Ratio 13 15 Glucose [address] Glu mg/dL 117 Hemoglobin A1c 5.7 Calculated Osmolality 283 283 Calcium 8.8 8.3 Corrected Calcium 8.8 Phosphorus 3.9 Magnesium 2.1 1.9 Total Bilirubin 0.5 AST 26 ALT 21 Alkaline Phosphatase 55 Troponin I 0.031 B-Natriuretic Peptide 41 Total Protein 6.4 Albumin 4.4 Globulin 2.0 L Albumin/Globulin Ratio 2.2 Triglycerides 73 Cholesterol 162 LDL Cholesterol, Calc 91 HDL Cholesterol 56 Cholesterol/HDL Ratio 2.9 L TSH 2.21 Ur Collection Type Catheter Urine Color Lt-Yellow Urine Clarity Clear Urine pH 6.5 Ur Specific [place] 1.010 Urine Protein Negative Urine Glucose (UA) Negative Urine Ketones Negative Urine Blood Negative Urine Nitrite Negative Urine Bilirubin Negative Urine Urobilinogen (Auto) Negative Ur Leukocyte Esterase Negative Urine RBC 1 Urine WBC < 1 Ur Squamous Epith Cells 0 Urine Bacteria None Urine Opiates Screen Negative Urine Fentanyl Screen Negative Ur Barbiturates Screen Negative U Amphetamin/Meth Scrn Positive A U Benzodiazepines Scrn Negative U Cocaine Metab Screen Negative U Marijuana (THC) Screen Negative Ethyl Alcohol < 3.0 Quality Measures Quality Measures stroke Suspected type of Stroke: Non Acute Last known well (date): 07/06/25 Last known well (time): 03:00 Tenecteplase given: Reason(s) Tenecteplase not given: Outside the time window not given Rehab services: PT evaluation ordered and Speech Language Pathology eval ordered VTE Prophylaxis: pharmaceutical Antithrombotic by day 2:: ordered Statin ordered: <75 y/o high intensity dose Anticoagulation ordered for A-fib or flutter (current or hx): not indicated Assessment & Plan Assessment Current Active Medications: Generic Name Dose Route Start Last Admin Trade Name Freq PRN Reason Stop Dose Admin Acetaminophen 650 mg 07/06/25 20:04 Acetaminophen 325 Mg Tablet PO 08/05/25 20:03 Q6H PRN Fever >100.3 Acetaminophen 650 mg 07/06/25 20:04 Acetaminophen 325 Mg Tablet PO 08/05/25 20:03 Q6H PRN PAIN SCALE 1-3 (mild Aspirin 81 mg 07/07/25 09:00 07/07/25 08:17 Aspirin Ec 81 Mg Tabec PO 08/06/25 08:59 81 mg QDAY FRANCY Administration Atorvastatin Calcium 80 mg 07/07/25 21:00 Atorvastatin Calcium 20 Mg Tablet PO 08/06/25 20:59 HS FRANCY Clopidogrel Bisulfate 75 mg 07/07/25 09:00 07/07/25 08:17 Clopidogrel Bisulfate 75 Mg Tablet PO 08/06/25 08:59 75 mg QDAY FRANCY Administration Heparin Sodium (Porcine) 5,000 unit 07/06/25 22:00 07/07/25 14:19 Heparin Sod Inj 5000 Unit/Ml Vial SC 07/20/25 21:59 5,000 unit Q8HR FRANCY Administration Sodium Chloride 1,000 mls @ 100 mls/hr 07/06/25 17:45 07/07/25 14:19 Ns IV 08/05/25 17:44 100 mls/hr .Q10H FRANCY Administration Labetalol HCl 10 mg 07/06/25 20:34 07/06/25 21:07 Labetalol Inj 5 Mg/Ml Vial 20 Ml IVP 08/05/25 20:27 10 mg Q6H PRN Administration SBP>220, DBP>120 Lisinopril 5 mg 07/07/25 09:00 07/07/25 08:58 Lisinopril 2.5 Mg Tablet PO 08/06/25 08:59 5 mg QDAY FRANCY Administration Ondansetron HCl 4 mg 07/06/25 20:04 07/07/25 11:29 Ondansetron Inj 2 Mg/Ml Inj 2 Ml IVP 08/05/25 20:03 4 mg Q6H PRN Administration NAUSEA OR VOMITING Protocol Sennosides 1 tab 07/06/25 21:49 Senna/Docusate Sod 1 Tab Tablet PO 08/05/25 21:48 QDAY PRN CONSTIPATION Protocol Plan 60 y/o male with PMH HTN who presented to the ED 07/06 with right sided weakness, numbness, ataxia, slurred speech, word finding difficulties, and right facial droop x 1 day. Admitted for stroke w/u. #Right sided weakness-resolved #Dysarthria-resolved #Mild expressive aphasia-resolved #Hypertensive emergency Ischemic stroke vs TIA vs hypertensive emergency Patient had right side weakness, numbness, slurred speech for 1 day. He left for work in the morning and called EMS after symptoms did not improve. Denies smoking or drinking. Has not had stroke or TIA in the past. EMS also noticed right side facial droop upon arrival. Symptoms improved in the ED. Outside of window for tPA, not candidate for thrombolytics. NIHSS 6, BP admission 180/120, CT head negative for hemmorage or shift. Did show left lateral ventricle enlargement. CTA head/neck was negative. Does not take any medications for hypertension. Symptoms have resolved now. TAG 73, chol 162, LDL 91, HDL 56, TSH 2.21, A1c 5.7. Utox positive for amphetamines. -echo results pending -MRI results pending -continue aspirin 81mg -continue plavix 75mg -Atorvastatin 80 mg -permissive HTN for 24 -15% BP reducation with IV labetalol 10mg q4hr PRN -PT eval -speech eval -neuro checks q4hr -if MRI negative for infarcts, continue aspirin and atorvastatin only for TIA -continue BP control outpatient The patient's management plan was discussed with my attending physician Dr. Acosta. Geraldine Kimble, PGY-2 Attending Provider Attestation/Addendum I virtually have seen the patient at the bedside and I agreed with resident's findings, assessment and plan of care. 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
[2025-07-07] MEDS: ATORVASTATIN CALCIUM 20 MG TABLET 80 MG PO (21:12)
[2025-07-08] VITALS: BP 156/97; PULSE 79; PULSE 88; RESP 19; TEMP 36.3; O2SAT 95
[2025-07-08] MEDS: SODIUM CHLORIDE 0.9% 1000 ML 1,000 ML 100 ML IV (01:26)
--- NOTE | 2025-07-08 03:18 | PC.NURSE ---
0315 PT VERBALIZED WANTED TO GO HOME AMA, PT REMOVED TELEBOX, GATHERED HIS BELONGING. PT ALERT AND ORIENTED X4. PT DENIES PAIN. PT AMBULATORY,NO NEURO DEFICIT. DR. ROSE NOTIFIED OF AMA AND CAME IN PT'S ROOM. EXPLAINED RISK OF AMA AND PT VERBALIZED UNDERSTANDING BUT STILL WANTS TO GO HOME AMA. PT SIGNED AMA FORM. PT ESCORTED TO LOBBY EXIT DOOR.
--- NOTE | 2025-07-08 03:35 | PD.RESEVENT ---
Documentation for date of: 07/10/25 Event Note Event Note: 07/08/2025 03:34: Patient expressed a desire to leave the hospital AMA. He was being treated for a recent stroke, reports feeling well and states that all symptoms have resolved. Despite our efforts to convince the patient to stay for further evaluation and observation, they remain insistent on discharge. We explained the potential risks of leaving AMA, including the increased risk of a recurrent stroke, as stroke patients are at higher risk for subsequent events, and early discharge could delay necessary treatment. Additionally, we highlighted the risk of incomplete evaluation, as leaving prematurely may prevent essential imaging or investigations to identify underlying causes. The possibility of worsening neurological status was also discussed, emphasizing that symptoms could reappear or escalate after discharge, and timely intervention could be crucial. We also discussed the importance of rehabilitation services, such as physical, occupational, or speech therapy, which could be missed with early discharge. Despite understanding these risks, the patient insisted on leaving. We advised them to follow up with their primary care provider (PCP) as soon as possible and to schedule a follow-up appointment with neurology. The patient was instructed to return immediately if they experience any new or worsening symptoms, such as weakness, numbness, difficulty speaking, confusion, or changes in vision. The patient was reminded of the importance of follow-up care to ensure proper monitoring and recovery. The decision to leave AMA was made by the patient after being fully informed of the associated risks. Case was discussed with attending physician. Birgit Tapia DO PGY II This document was transcribed using voice recognition technology. Minor inaccuracies may be present.
== END 2025-07-08 03:18 | disposition left against medical advice (07) | DRG 65 ==
LOC: SERX 19:19 → SERHOLD 21:23 → S2NX 07-07 06:31 → SERHOLD 07-11 09:32
PROVIDERS: Admitting Provider Student in an Organized Health Care Education/Training Program; Emergency Provider Family Medicine; Visit Provider Internal Medicine
DX: I63.89 Other cerebral infarction (principal); G81.91 Hemiplegia, unspecified affecting right dominant side; I42.0 Dilated cardiomyopathy; I50.20 Unspecified systolic (congestive) heart failure; R18.8 Other ascites; R29.810 Facial weakness; R47.01 Aphasia; M21.371 Foot drop, right foot; R47.1 Dysarthria and anarthria; I16.0 Hypertensive urgency; F15.90 Other stimulant use, unspecified, uncomplicated; F17.200 Nicotine dependence, unspecified, uncomplicated; I27.21 Secondary pulmonary arterial hypertension; I11.0 Hypertensive heart disease with heart failure; Z79.02 Long term (current) use of antithrombotics/antiplatelets; I07.1 Rheumatic tricuspid insufficiency; Z79.82 Long term (current) use of aspirin; Z79.899 Other long term (current) drug therapy; R29.706 NIHSS score 6; Z53.29 Procedure and treatment not carried out because of patient's decision for other reasons
CPT/HCPCS: 36415; 70450; 70496; 70498; 70553; 76705; 80048; 80053; 80061; 80307; 80320; 81001; 82042; 82150; 82945; 83036; 83615; 83735; 83880; 84100; 84157; 84443; 84484; 85025; 85610; 85730; 87070; 87075; 87086; 87205; 89051; 92610; 93005; 93306; 96361; 96372; 96374; 96375; 97161; 99284; A4649; A9577; J1644; J2405; J3490; J7030; Q9967; A9270; G0480; J1920